=== PATIENT | male | born 2000 | race Two or more races ===

== ENCOUNTER 2021-03-11 22:28 | Emergency (ER) | payer OTHER ==
[2021-03-11 22:42] VITALS: BP 158/95; PULSE 68; TEMP 98.6; BMI 25.3
[2021-03-11] MEDS ORDERED: DIPHTH,PERTUSS(ACELL),TET 0.5 ML DISP.SYRIN IM ONE (23:18)
[2021-03-11] MEDS ORDERED: BACITRACIN 0.9 GM PACKET TP ONE (23:39)
[2021-03-11] MEDS ORDERED: BACITRACIN 15 GM TUBE TOPICAL OINTMENT ONE (23:53)
== END 2021-03-12 00:11 | disposition home or self-care (01) ==
LOC: JER 22:28
PROC: 3E0234Z Introduction of Serum, Toxoid and Vaccine into Muscle, Percutaneous Approach (ICD-10-PCS; principal; 2021-03-11)
DX: S40.812A Abrasion of left upper arm, initial encounter (principal); S20.312A Abrasion of left front wall of thorax, initial encounter; S30.811A Abrasion of abdominal wall, initial encounter
CPT/HCPCS: 90471; 90715; 99283-25

== ENCOUNTER 2021-05-28 00:22 | Emergency (ER) | payer OTHER ==
[2021-05-28 00:46] VITALS: TEMP 97.2; BMI 25.3
[2021-05-28] MEDS ORDERED: AMPICILLIN NA/SULBACTAM NA 3 GM in SODIUM CHLORIDE 100 ML IVPB ONE ×2 (02:14→02:42)
[2021-05-28 02:29] LABS: BASO % 0.4 % (0-2.0); EOS % 4.5 % (0-4.5); HEMATOCRIT 42.4 % (35.4-49); HEMOGLOBIN 14.2 GM/dL (11.7-16.9); MCHC 33.5 g/dl (32.0-35.9); MEAN CELL VOLUME 80.5 fl (80-96); MEAN PLT VOLUME 9.5 fl (7.5-11.1); MONO % 5.7 % (3.8-10.2); NEUT % 61.4 % (42.8-82.8); PLATELET COUNT 208 10^3/uL (134-434); RBC 5.27 M/mm3 (4.00-5.60); RDW 13.3 % (11.9-15.9)
[2021-05-28 02:39] LABS: INR 1.12 (0.83-1.09); PROTHROMBIN TIME (PATIENT) 13.6 SEC (9.7-13.0)
[2021-05-28 02:41] LABS: ACTIVATED PTT 34.9 SECONDS (25.2-36.5)
[2021-05-28 02:46] LABS: ALBUMIN 4.3 g/dl (3.4-5.0); BLOOD UREA NITROGEN 11.9 mg/dL (7-18)
[2021-05-28 02:49] LABS: CREATININE 1.2 mg/dL (0.55-1.3)
[2021-05-28 02:51] LABS: TOT PROT 7.8 g/dl (6.4-8.2)
[2021-05-28 02:59] LABS: CALCIUM 8.1 mg/dL (8.5-10.1)
[2021-05-28] MEDS ORDERED: morphine CARPU-JECT 4 MG/1 ML DISP.SYRIN IVPUSH ONE (03:06)
[2021-05-28] MEDS ORDERED: morphine SULFATE 4 MG/ML VIAL ONE (03:07)
[2021-05-28 03:41] VITALS: BP 146/99; PULSE 82
[2021-05-28] MEDS ORDERED: ACETAMINOPHEN 1000 MG/100 ML VIAL (NON FORMULARY) IVPB ONE (04:10)
== END 2021-05-28 04:29 | disposition short-term general hospital (02) ==
LOC: JER 00:22
PROC: 3E033GC Introduction of Other Therapeutic Substance into Peripheral Vein, Percutaneous Approach (ICD-10-PCS; principal; 2021-05-28)
DX: S02.601A Fracture of unspecified part of body of right mandible, initial encounter for closed fracture (principal); W22.8XXA Striking against or struck by other objects, initial encounter
CPT/HCPCS: 36415; 70486-TC; 80053; 80307; 85025; 85610; 85730; 96374; 96375; 99285-25; C9803; J0131; U0003; U0005